=== PATIENT | female | born 1940 | race Caucasian/White ===

== ENCOUNTER 2017-03-24 07:30 | Day surgery (SDC) | payer OTHER ==
[2017-03-17 16:56] VITALS: BMI 38.6
[2017-03-24] MEDS ORDERED: ACETAMINOPHEN 500 MG TABLET (FP) PO PRN (08:41)
[2017-03-24] MEDS ORDERED: POVIDONE-IODINE 5% OPHTHALMIC PREP 30 ML SOLUTION ONE (08:46)
[2017-03-24] MEDS ORDERED: BUPIVACAINE HCL/PF 0.5% (5MG/ML) 10 ML VIAL ONE (08:46)
[2017-03-24] MEDS ORDERED: LIDOCAINE 1%/EPI 1:100000 (20 ML MULTI DOSE VIAL) ONE (08:46)
[2017-03-24] MEDS ORDERED: TETRACAINE 0.5% OPHTH SOLN 2 ML BOTTLE ONE (08:46)
[2017-03-24] MEDS ORDERED: BACITRACIN 3.5 GM OPTHALMIC OINT TUBE ONE (08:46)
[2017-03-24] MEDS ORDERED: OXYMETAZOLINE 0.05% NASAL SOLUTION 15 ML BOTTLE NS ONE (08:55)
[2017-03-24] MEDS ORDERED: THROMBIN (BOVINE) 5,000 UNIT VIAL TP ONE (08:56)
[2017-03-24] MEDS ORDERED: MIDAZOLAM HCL 2 MG/2 ML SINGLE DOSE VIAL ONE (09:13)
[2017-03-24] MEDS ORDERED: PROPOFOL 20 ML ONE (09:13)
[2017-03-24] MEDS ORDERED: ONDANSETRON 4 MG/2 ML VIAL ONE ×2 (09:39→10:38)
[2017-03-24] MEDS ORDERED: ceFAZolin SODIUM 1 GM VIAL ONE (09:41)
[2017-03-24] MEDS ORDERED: METOPROLOL TARTRATE 5 MG/5 ML VIAL ONE (09:42)
[2017-03-24] MEDS ORDERED: oxyCODONE HCL 5 MG TABLET PO PRN (10:59)
[2017-03-24] MEDS ORDERED: ONDANSETRON 4 MG/2 ML VIAL IVPUSH PRN (10:59)
[2017-03-24] MEDS ORDERED: LACTATED RINGERS SOLUTION 1,000 ML IV SCH (11:00)
[2017-03-24] MEDS ORDERED: ACETAMINOPHEN 500 MG TABLET (FP) ONE (11:47)
[2017-03-24 11:55] VITALS: TEMP 97.7
--- NOTE | 2017-03-24 12:25 | OP ---
DATE OF OPERATION: 03/24/2017 PREOPERATIVE DIAGNOSIS: Nasal lachrymal obstruction, left, with chronic dacryocystitis. POSTOPERATIVE DIAGNOSIS: Nasal lachrymal obstruction, left, with chronic dacryocystitis. PROCEDURE: 1. External dacryocystorhinostomy. 2. Silicone intubation, left lachrymal cyst. 3. Partial middle turbinectomy. 4. Endoscopy, left. 5. Common internal canaliculoplasty. SURGEON: Bryson Medeiros MD ANESTHESIA: LMA. COMPLICATONS: None. ESTIMATED BLOOD LOSS: 30 mL. OPERATION REPORT: Patient was brought to the operating room, placed on the operating room table. Vital signs monitored by Anesthesia. She was placed under LMA anesthesia. Line was marked in the left tear trough. Tetracaine was placed in both eyes. A time-out was performed, and then, a 50/50 mixture of 2% Xylocaine with 1:100,000 epinephrine and 0.5% Marcaine was injected subcutaneously in the area of the tear trough and nasal side of the upper and lower lid, lateral wall of the nose, and dorsal nasal artery. Then, under direct visualization, the middle meatus, middle turbinate, external naris, and septum were injected, and the left nose was packed with Cottonoids moistened with thrombin. Patient was prepped and draped in the usual sterile fashion exposing both eyes. The left eye was taped closed with Steri-Strips. An incision was made through the skin and subcutaneous tissue of the tear trough on the left and was spread apart with Elliott scissors. Significant cicatricial tissue and scar tissue was identified and had to be dissected forward to get to anterior lacrimal crest. The anterior lacrimal crest was incised with the periosteum with a Campbell needle and was reflected laterally to expose the lacrimal sac fossa. Then, the posterior lacrimal sac fossa was penetrated with a hemostat. At this point, the sac ruptured, and the purulent fluid was cultured and sucked out of the wound. The upbiting Kerrison rongeurs were used to create an osteotomy centered on the anterior lacrimal crest extending from the nasal lacrimal duct to the medial canthal tendon. The middle turbinate was encroaching on this area, and this was partially resected, opening the internal fistula to the nose as demonstrated by passage of a [place] periosteal elevator. The medial wall sac was tented medially by dilating the puncta upper and lower and intubating it with probes, and the sac was opened on its medial surface with a 12 blade and Nancy scissors creating an anterior lacrimal sac flap. The system was intubated with the Valles probes and which were treated with Valles hooks and left external naris. The internal common canaliculus was dilated. Scar tissue was removed to allow free egress of the silicone, which moved freely through the system. Silicone was tied with locking knot and secured to the left internal naris with a single 6-0 Prolene. The anterior lacrimal sac flap was secured anterior to the osteotomy site with a double-arm 4-0 chromic suture and reinforced with two interrupted 4-0 chromic sutures to close the anastomosis. The subcuticular tissue was closed with 5-0 chromic after antibiotic irrigation, two sutures were used, and the skin was closed with interrupted 6-0 plain sutures with plastic technique. Bacitracin ointment was placed on the sutures. Afrin was sprayed in the nose. The endoscope was introduced demonstrating no impingement on the osteotomy site with good positioning of the tube and good hemostasis, and the patient was awakened from anesthesia and taken to the recovery room in stable condition. Kalyani [id number]
[2017-03-24 12:53] VITALS: BP 143/74; PULSE 66
== END 2017-03-24 12:55 | disposition home or self-care (01) ==
LOC: FASU 07:30
PROVIDERS: ATTEND Ophthalmology
PROC: 09JY4ZZ Inspection of Sinus, Percutaneous Endoscopic Approach (ICD-10-PCS; 2017-03-24)
PROC: 081Y0Z3 Bypass Left Lacrimal Duct to Nasal Cavity, Open Approach (ICD-10-PCS; principal; 2017-03-24 09:41)
DX: H04.412 Chronic dacryocystitis of left lacrimal passage (principal); H04.552 Acquired stenosis of left nasolacrimal duct
CPT/HCPCS: 87070; 87205; 94760